=== PATIENT | female | born 1945 | race Caucasian/White ===

== ENCOUNTER 2019-04-15 10:25 | Inpatient (IN) | payer MEDICARE, MEDICAID ==
[~2019-04-15] VITALS: Ht 320 cm; Wt 47.6 kg
[~2019-04-15 10:25] MED LIST: BENA40TA9 PO; CALC667T6 PO; FAMO40TA70 PO; FLUO1TAB26; FOLI-43 PO; FOLI1POW MC; OMEP10SU2 PO; PRAV40TA58 PO
[2019-04-15 11:05] LABS: BASOPHILS % 0.3 % (0.0-2.0); EOSINOPHILS % 5.1 % (0.0-5.0); HEMATOCRIT. 35.9 % (36.0-48.0); HEMOGLOBIN. 11.8 g/dL (12.0-16.0); LYMPHOCYTES % 20.5 % (20.0-50.0); MEAN CORPUSCULAR HEMOGLOBIN 30.8 pg (28.0-32.0); MEAN CORPUSCULAR VOLUME 93.6 fL (81.0-99.0); MEAN PLATELET VOLUME 9.4 fl (7.4-10.4); MONOCYTES % 11.1 % (2.0-8.0); PLATELET 110 x1000/uL (130-400); RED BLOOD CELL COUNT 3.84 mill/uL (4.2-5.4); RED CELL DISTRIBUTION WIDTH 14.5 % (11.6-14.6)
[2019-04-15 11:11] LABS: CHLORIDE 96 mEq/L (98-107)
[2019-04-15 11:34] LABS: PROTHROMBIN TIME 10.5 sec (9.6-11.0)
[2019-04-15] MEDS ORDERED: FUROSEMIDE 40MG/4ML VIAL IVP ONE (13:30)
[2019-04-15] MEDS ORDERED: ONDANSETRON HCL 4MG/2ML INJ IV PRN (14:15)
[2019-04-15] MEDS ORDERED: ACETAMINOPHEN 325MG TABLET PO PRN (14:15)
[2019-04-15] MEDS ORDERED: CLONIDINE 0.1MG TABLET PO PRN (14:15)
[2019-04-15] MEDS ORDERED: MAGNESIUM/ALUMINUM HYDROXIDE/SIMETHICONE 30ML UDC PO PRN (14:15)
[2019-04-15] MEDS ORDERED: DIPHENHYDRAMINE 50MG/ML VIAL IV PRN (14:15)
[2019-04-15] MEDS ORDERED: IPRATROPIUM/ALBUTEROL 0.5-3(2.5)MG/3ML NEB INH PRN (14:15)
[2019-04-15 15:40] VITALS: BP 166/67
[2019-04-15 16:00] VITALS: BP 135/53
[2019-04-15] MEDS ORDERED: PNEUMOCOCCAL 23-VAL P-SAC VAC 0.5 ML IM ONE (16:15)
[2019-04-15] MEDS ORDERED: AMLO5TAB88 PO (17:44)
[2019-04-15] MEDS ORDERED: LOSA50TA41 PO (17:53)
[2019-04-15] MEDS ORDERED: MULT-1146 MT (17:53)
[2019-04-15 20:00] VITALS: BP 161/81
[2019-04-15] MEDS: SODIUM CHLORIDE 0.9% INJ 3ML FLUSH IVF SCH (22:05)
[2019-04-16] VITALS: BP 159/69
[2019-04-16 04:00] VITALS: BP 170/60
[2019-04-16 04:15] VITALS: BP 139/59
[2019-04-16] MEDS: SODIUM CHLORIDE 0.9% INJ 3ML FLUSH IVF SCH ×3 (05:12→21:40)
[2019-04-16 06:30] LABS: BASOPHILS % 0.3 % (0.0-2.0); EOSINOPHILS % 4.4 % (0.0-5.0); HEMATOCRIT. 33.1 % (36.0-48.0); LYMPHOCYTES % 22.7 % (20.0-50.0); MEAN CORPUSCULAR HEMOGLOBIN 30.9 pg (28.0-32.0); MEAN CORPUSCULAR VOLUME 93.2 fL (81.0-99.0); MEAN PLATELET VOLUME 9.5 fl (7.4-10.4); MONOCYTES % 9.7 % (2.0-8.0); NEUTROPHILS % 62.9 % (40.0-76.0); PLATELET 103 x1000/uL (130-400); RED BLOOD CELL COUNT 3.55 mill/uL (4.2-5.4); RED CELL DISTRIBUTION WIDTH 14.2 % (11.6-14.6)
[2019-04-16 07:42] LABS: PHOSPHORUS 2.7 mg/dL (2.5-4.9)
[2019-04-16 08:00] VITALS: BP_SYST 102; BP_SYST 158; BP_DIAS 53; BP_DIAS 73
[2019-04-16 20:00] VITALS: BP 113/61
[2019-04-17] VITALS: BP 143/56
[2019-04-17] MEDS: SODIUM CHLORIDE 0.9% INJ 3ML FLUSH IVF SCH (05:24)
[2019-04-17 06:47] LABS: BASOPHILS % 0.4 % (0.0-2.0); EOSINOPHILS % 5.1 % (0.0-5.0); HEMATOCRIT. 33.1 % (36.0-48.0); HEMOGLOBIN. 11.1 g/dL (12.0-16.0); LYMPHOCYTES % 19.4 % (20.0-50.0); MEAN CORPUSCULAR HEMOGLOBIN 31.2 pg (28.0-32.0); MEAN CORPUSCULAR VOLUME 92.9 fL (81.0-99.0); MEAN PLATELET VOLUME 9.4 fl (7.4-10.4); MONOCYTES % 9.3 % (2.0-8.0); NEUTROPHILS % 65.8 % (40.0-76.0); PLATELET 94 x1000/uL (130-400); RED BLOOD CELL COUNT 3.56 mill/uL (4.2-5.4); RED CELL DISTRIBUTION WIDTH 14.4 % (11.6-14.6)
[2019-04-17 08:00] VITALS: BP 136/60
[2019-04-17 08:19] LABS: PHOSPHORUS 2.9 mg/dL (2.5-4.9)
[2019-04-17 12:27] VITALS: BP 124/50
[2019-04-17 12:28] VITALS: BP 124/50
== END 2019-04-17 14:07 | disposition home or self-care (01) | DRG 470 ==
LOC: ER 10:25 → 8WST 13:21 → ENRESERV 13:34
PROVIDERS: ADMIT Internal Medicine; ATTEND Internal Medicine
PROC: 5A1D70Z Performance of Urinary Filtration, Intermittent, Less than 6 Hours Per Day (ICD-10-PCS; principal; 2019-04-16)
DX: I13.11 Hypertensive heart and chronic kidney disease without heart failure, with stage 5 chronic kidney disease, or end stage renal disease (principal); J96.90 Respiratory failure, unspecified, unspecified whether with hypoxia or hypercapnia; N18.6 End stage renal disease; D69.6 Thrombocytopenia, unspecified; I48.0 Paroxysmal atrial fibrillation; D64.9 Anemia, unspecified; J81.1 Chronic pulmonary edema; R07.89 Other chest pain; E78.00 Pure hypercholesterolemia, unspecified; E78.5 Hyperlipidemia, unspecified; Z82.49 Family history of ischemic heart disease and other diseases of the circulatory system; Z99.2 Dependence on renal dialysis; Z88.0 Allergy status to penicillin; Z79.899 Other long term (current) drug therapy
CPT/HCPCS: 36415; 71045; 80048; 83605; 83735; 84100; 84145; 84484; 90732; 93005; 96374; 99285; J1940

== ENCOUNTER 2024-06-20 22:03 | Inpatient (IN) | payer MEDICARE, MEDICAID ==
[~2024-06-20] VITALS: Ht 152.4 cm; Wt 40.9 kg
[~2024-06-20 22:03] MED LIST changes: +AMLO5TAB88 PO; -BENA40TA9 PO; -FLUO1TAB26; -FOLI1POW MC; +LOSA50TA41 PO; +MULT-1146 MT; -OMEP10SU2 PO
[2024-06-20] MEDS ORDERED: ONDANSETRON HCL 4MG/2ML INJ IV STA (23:27)
[2024-06-20] MEDS ORDERED: MORPHINE SULFATE 4 MG/ML INJ (FOR IV/IM USE) IV STA (23:27)
[2024-06-20] MEDS ORDERED: LIDOCAINE HCL/EPINEPHRINE 1%-EPI 1:100,000 20 ML VIAL INFIL ONE (23:45)
[2024-06-20] MEDS ORDERED: BACITRACIN ZINC OINT UDPKT TOP ONE (23:45)
[2024-06-20] MEDS ORDERED: TETANUS, DIPHTHERIA, PERTUSSIS VAC/PF 0.5ML (>10YR OLD) IM ONE (23:45)
[2024-06-21] VITALS (12 sets, daily range): BP systolic 101–142; BP diastolic 51–73; PULSE 96–117; RESP 18–20; TEMP 36.3918–37.05852; O2SAT 95–100
[2024-06-21 00:16] LABS: BASOPHILS % 0.4 % (0.0-2.0); DIFFERENTIAL COMMENT 0; HEMATOCRIT. 29.2 % (36.0-48.0); HEMOGLOBIN. 9.3 g/dL (12.0-16.0); LYMPHOCYTES % 16.2 % (20.0-50.0); MEAN CORPUSCULAR HEMOGLOBIN 32.1 pg (28.0-32.0); MEAN CORPUSCULAR HGB CONC 31.8 g/dL (31.0-37.0); MEAN CORPUSCULAR VOLUME 100.8 fL (81.0-99.0); MEAN PLATELET VOLUME 9.4 fl (7.4-10.4); MONOCYTES % 9.4 % (2.0-8.0); PLATELET 160 x1000/uL (130-400); RED CELL DISTRIBUTION WIDTH 15.8 % (11.6-14.6); WHITE BLOOD COUNT 5.5 x1000/uL (4.5-11.0)
[2024-06-21 00:19] LABS: CHLORIDE 101 mEq/L (98-107); POTASSIUM 3.7 mEq/L (3.5-5.1); SODIUM 140 mEq/L (136-145)
[2024-06-21 00:20] LABS: CARBON DIOXIDE 28 mEq/L (21-32)
[2024-06-21 00:21] LABS: CALCIUM 9.6 mg/dL (8.7-10.4)
[2024-06-21 00:26] LABS: GLUCOSE 152 mg/dL (70-105); UREA NITROGEN BLOOD 35 mg/dL (9-23)
[2024-06-21 00:27] LABS: TROPONIN I HIGH SENSITIVITY 22 ng/L (3.0-34)
[2024-06-21 00:29] LABS: CREATININE 8.2 mg/dL (0.6-1.0)
[2024-06-21] MEDS: CEFTRIAXONE 1GM/50ML 50 ML IV ONE (01:40)
[2024-06-21] MEDS: MORPHINE SULFATE 4 MG/ML INJ (FOR IV/IM USE) IV NR (01:40)
[2024-06-21] MEDS: ONDANSETRON HCL 4MG/2ML INJ IV NR (01:40)
[2024-06-21] MEDS ORDERED: TETANUS, DIPHTHERIA, PERTUSSIS VAC/PF 0.5ML (>10YR OLD) IM ONE (02:00)
[2024-06-21] MEDS ORDERED: LIDOCAINE HCL/EPINEPHRINE 1%-EPI 1:100,000 20 ML VIAL INFIL NR (02:00)
[2024-06-21 02:14] LABS: PROTHROMBIN TIME 10.9 sec (9.6-11.0)
[2024-06-21 02:54] LABS: TROPONIN I HIGH SENSITIVITY 21 ng/L (3.0-34)
[2024-06-21] MEDS ORDERED: HYDRALAZINE 20MG/ML VIAL IV PRN (10:45)
[2024-06-21] MEDS: HYDRALAZINE 20MG/ML VIAL IV PRN (10:47)
[2024-06-21] MEDS ORDERED: DEXTROSE 50% WATER 50ML SYRINGE IV PRN (12:15)
[2024-06-21] MEDS ORDERED: ACETAMINOPHEN 325MG TABLET PO PRN ×2 (12:15)
[2024-06-21] MEDS ORDERED: IPRATROPIUM/ALBUTEROL 0.5-3(2.5)MG/3ML NEB HHN PRN (12:15)
[2024-06-21] MEDS ORDERED: DOCUSATE SODIUM 100MG CAPSULE PO PRN (12:15)
[2024-06-21] MEDS ORDERED: CLONIDINE 0.1MG TABLET PO PRN (12:15)
[2024-06-21] MEDS ORDERED: ONDANSETRON HCL 4MG/2ML INJ IV PRN (12:15)
[2024-06-21] MEDS: INSULIN LISPRO 100 UNITS/ML SUBCUT SCH (12:40)
[2024-06-21] MEDS: HYDRALAZINE HCL 50MG TABLET PO SCH (14:00)
[2024-06-21 17:06] LABS: CARBON DIOXIDE 29 mEq/L (21-32); CHLORIDE 100 mEq/L (98-107); POTASSIUM 4.9 mEq/L (3.5-5.1); SODIUM 142 mEq/L (136-145)
[2024-06-21] MEDS: BLOOD SUGAR DIAGNOSTIC STRIP TEST SCH (17:09)
[2024-06-21 17:11] LABS: GLUCOSE 160 mg/dL (70-105)
[2024-06-21 17:12] LABS: LDL CHOLESTEROL 81 mg/dL (5-100); TRIGLYCERIDE 112 mg/dL (0-150); UREA NITROGEN BLOOD 46 mg/dL (9-23)
[2024-06-21 17:13] LABS: ALANINE AMINOTRANSFERASE < 7 IU/L (10-49); ALBUMIN 3.9 g/dL (3.2-4.8); ASPARTATE AMINOTRANSFERASE 22 IU/L (<34); BILIRUBIN DIRECT 0.1 mg/dL (<=3.0); CHOLESTEROL 151 mg/dL (<200); HDL CHOLESTEROL 49 mg/dL (>65); PROTEIN TOTAL 6.7 g/dL (6.0-8.3)
[2024-06-21 17:14] LABS: BILIRUBIN TOTAL 0.2 mg/dL (0.1-1.0); CREATININE 9.9 mg/dL (0.6-1.0); PHOSPHORUS 5.5 mg/dL (2.5-4.9)
[2024-06-21] MEDS ORDERED: NALOXONE HCL 0.4MG/ML VIAL IV PRN (17:15)
[2024-06-21 17:16] LABS: CREATINE KINASE MB FRACTION 1.3 ng/mL (0.5-3.6)
[2024-06-21 17:18] LABS: DIFFERENTIAL COMMENT 1; HEMATOCRIT. 23.7 % (36.0-48.0); HEMOGLOBIN. 7.6 g/dL (12.0-16.0); MEAN CORPUSCULAR HEMOGLOBIN 32.2 pg (28.0-32.0); MEAN CORPUSCULAR HGB CONC 32.2 g/dL (31.0-37.0); MEAN CORPUSCULAR VOLUME 99.8 fL (81.0-99.0); MEAN PLATELET VOLUME 9.9 fl (7.4-10.4); PLATELET 135 x1000/uL (130-400); RED BLOOD CELL COUNT 2.37 mill/uL (4.2-5.4); RED CELL DISTRIBUTION WIDTH 15.6 % (11.6-14.6); T4 FREE 0.79 ng/dL (0.89-1.76); THYROID STIMULATING HORMONE 2.55 uIU/mL (0.55-4.78); WHITE BLOOD COUNT 6.9 x1000/uL (4.5-11.0)
[2024-06-21 17:21] LABS: D-DIMER 21.91 mg/L FEU (<0.50); PROTHROMBIN TIME 11.4 sec (9.6-11.0)
[2024-06-21 17:31] LABS: HEPATITIS B SURFACE ANTIGEN NEGATIVE (Negative)
[2024-06-21 17:51] LABS: HEPATITIS A AB IGM NEGATIVE (Negative)
[2024-06-21 17:52] LABS: HEPATITIS B CORE AB IGM NEGATIVE (Negative); HEPATITIS C AB NON REACTIVE (Neg) (Negative)
[2024-06-21] MEDS: HYDROCODONE/ACETAMINOPHEN 5/325MG TABLET PO PRN (20:37)
[2024-06-21] MEDS: EPOETIN ALFA-EPBX 4,000 UNIT/ML VIAL SUBCUT SCH (21:41)
[2024-06-21 23:37] LABS: ANISOCYTOSIS 1+; PLATELET ESTIMATE NORMAL
[2024-06-22] VITALS: BP 130/85; PULSE 65; RESP 19; TEMP 36.55848; O2SAT 99
[2024-06-22 01:02] LABS: CREATINE KINASE MB FRACTION 1.3 ng/mL (0.5-3.6)
[2024-06-22 04:00] VITALS: BP 142/70; PULSE 76; RESP 19; TEMP 36.55848; O2SAT 99
[2024-06-22 08:00] VITALS: BP 157/72; PULSE 100; RESP 18; TEMP 36.3918; O2SAT 100
[2024-06-22] MEDS: PANTOPRAZOLE SODIUM 40 MG/VIAL IV SCH (09:00)
[2024-06-22 12:00] VITALS: BP 112/72; PULSE 87; RESP 18; TEMP 36.50292; O2SAT 95
[2024-06-22 15:28] LABS: BASOPHILS % 0.3 % (0.0-2.0); DIFFERENTIAL COMMENT 0; EOSINOPHILS % 0.6 % (0.0-5.0); HEMATOCRIT. 23.8 % (36.0-48.0); HEMOGLOBIN. 7.6 g/dL (12.0-16.0); LYMPHOCYTES % 9.8 % (20.0-50.0); MEAN CORPUSCULAR HEMOGLOBIN 32.6 pg (28.0-32.0); MEAN CORPUSCULAR HGB CONC 31.7 g/dL (31.0-37.0); MEAN CORPUSCULAR VOLUME 102.7 fL (81.0-99.0); MEAN PLATELET VOLUME 10.1 fl (7.4-10.4); MONOCYTES % 9.4 % (2.0-8.0); NEUTROPHILS % 79.9 % (40.0-76.0); PLATELET 121 x1000/uL (130-400); RED BLOOD CELL COUNT 2.32 mill/uL (4.2-5.4); RED CELL DISTRIBUTION WIDTH 16.7 % (11.6-14.6)
[2024-06-22 15:30] LABS: CHLORIDE 101 mEq/L (98-107); POTASSIUM 4.7 mEq/L (3.5-5.1); SODIUM 137 mEq/L (136-145)
[2024-06-22 15:32] LABS: CALCIUM 8.8 mg/dL (8.7-10.4); CARBON DIOXIDE 27 mEq/L (21-32)
[2024-06-22 15:37] LABS: GLUCOSE 147 mg/dL (70-105); UREA NITROGEN BLOOD 34 mg/dL (9-23)
[2024-06-22 15:39] LABS: ALANINE AMINOTRANSFERASE < 7 IU/L (10-49); ASPARTATE AMINOTRANSFERASE 24 IU/L (<34); BILIRUBIN DIRECT 0.1 mg/dL (<=3.0); BILIRUBIN TOTAL 0.3 mg/dL (0.1-1.0); PHOSPHORUS 5.6 mg/dL (2.5-4.9)
[2024-06-22 15:45] LABS: CREATININE 7.5 mg/dL (0.6-1.0)
[2024-06-22 16:00] VITALS: BP 122/56; PULSE 83; RESP 18; TEMP 36.55848; O2SAT 94
[2024-06-22 20:00] VITALS: BP 140/59; PULSE 95; RESP 17; TEMP 36.6696; O2SAT 97
[2024-06-22] MEDS: MORPHINE SULFATE 2 MG/ML INJ (NOT FOR IM USE) IV SCH (20:13)
[2024-06-22] MEDS: LORAZEPAM 2MG/ML INJ IV PRN (21:07)
[2024-06-23] VITALS: BP 155/66; PULSE 97; RESP 17; TEMP 36.22512; O2SAT 95
[2024-06-23 04:00] VITALS: BP 143/83; PULSE 92; RESP 17; TEMP 36.44736; O2SAT 100
[2024-06-23 08:00] VITALS: BP 154/66; PULSE 93; RESP 18; TEMP 36.114; O2SAT 8
[2024-06-23 12:00] VITALS: BP 169/70; PULSE 94; RESP 18; TEMP 36.3918; O2SAT 97
[2024-06-23 15:38] LABS: BASOPHILS % 0.4 % (0.0-2.0); DIFFERENTIAL COMMENT 0; EOSINOPHILS % 1.6 % (0.0-5.0); HEMATOCRIT. 27.1 % (36.0-48.0); HEMOGLOBIN. 8.5 g/dL (12.0-16.0); LYMPHOCYTES % 10.8 % (20.0-50.0); MEAN CORPUSCULAR HEMOGLOBIN 32.1 pg (28.0-32.0); MEAN CORPUSCULAR HGB CONC 31.5 g/dL (31.0-37.0); MEAN CORPUSCULAR VOLUME 102.1 fL (81.0-99.0); MONOCYTES % 6.7 % (2.0-8.0); NEUTROPHILS % 80.5 % (40.0-76.0); PLATELET 123 x1000/uL (130-400); RED BLOOD CELL COUNT 2.65 mill/uL (4.2-5.4); RED CELL DISTRIBUTION WIDTH 16.6 % (11.6-14.6); WHITE BLOOD COUNT 6.2 x1000/uL (4.5-11.0)
[2024-06-23 15:48] LABS: CHLORIDE 99 mEq/L (98-107); POTASSIUM 4.5 mEq/L (3.5-5.1); SODIUM 137 mEq/L (136-145)
[2024-06-23 15:49] LABS: CALCIUM 8.7 mg/dL (8.7-10.4); CARBON DIOXIDE 27 mEq/L (21-32)
[2024-06-23 15:54] LABS: GLUCOSE 126 mg/dL (70-105); UREA NITROGEN BLOOD 45 mg/dL (9-23)
[2024-06-23 15:55] LABS: CREATININE 8.8 mg/dL (0.6-1.0)
[2024-06-23 15:56] LABS: ALANINE AMINOTRANSFERASE < 7 IU/L (10-49); ALBUMIN 3.9 g/dL (3.2-4.8); ASPARTATE AMINOTRANSFERASE 22 IU/L (<34); BILIRUBIN DIRECT 0.1 mg/dL (<=3.0); BILIRUBIN TOTAL 0.3 mg/dL (0.1-1.0); PHOSPHORUS 5.8 mg/dL (2.5-4.9); PROTEIN TOTAL 7.2 g/dL (6.0-8.3)
[2024-06-23 16:00] VITALS: BP 130/57; PULSE 99; RESP 18; TEMP 36.44736; O2SAT 98
[2024-06-23 20:00] VITALS: BP 131/62; PULSE 100; RESP 20; TEMP 36.61404; O2SAT 95
[2024-06-24] VITALS (13 sets, daily range): BP systolic 110–152; BP diastolic 51–80; PULSE 70–111; RESP 16–20; TEMP 36.114–37.05852; O2SAT 94–100
[2024-06-24 08:45] LABS: HEMATOCRIT. 24.2 % (36.0-48.0); HEMOGLOBIN. 7.7 g/dL (12.0-16.0); MEAN CORPUSCULAR HEMOGLOBIN 32.2 pg (28.0-32.0); MEAN CORPUSCULAR VOLUME 100.6 fL (81.0-99.0); MEAN PLATELET VOLUME 9.9 fl (7.4-10.4); PLATELET 121 x1000/uL (130-400); RED CELL DISTRIBUTION WIDTH 15.7 % (11.6-14.6); WHITE BLOOD COUNT 5.9 x1000/uL (4.5-11.0)
[2024-06-24 08:53] LABS: CARBON DIOXIDE 27 mEq/L (21-32); CHLORIDE 101 mEq/L (98-107); POTASSIUM 4.6 mEq/L (3.5-5.1); SODIUM 137 mEq/L (136-145)
[2024-06-24 08:54] LABS: CALCIUM 8.5 mg/dL (8.7-10.4)
[2024-06-24 08:57] LABS: DIFFERENTIAL COMMENT 1
[2024-06-24 08:58] LABS: GLUCOSE 114 mg/dL (70-105)
[2024-06-24 08:59] LABS: UREA NITROGEN BLOOD 55 mg/dL (9-23)
[2024-06-24 09:00] LABS: ALANINE AMINOTRANSFERASE < 7 IU/L (10-49); ASPARTATE AMINOTRANSFERASE 18 IU/L (<34)
[2024-06-24 09:01] LABS: ALBUMIN 3.7 g/dL (3.2-4.8); BILIRUBIN DIRECT 0.1 mg/dL (<=3.0); BILIRUBIN TOTAL 0.3 mg/dL (0.1-1.0); PHOSPHORUS 5.7 mg/dL (2.5-4.9); PROTEIN TOTAL 6.7 g/dL (6.0-8.3)
[2024-06-24 09:15] LABS: CREATININE 9.8 mg/dL (0.6-1.0)
[2024-06-24] MEDS: DOXYCYCLINE HYCLATE 100MG CAPSULE PO SCH (09:43)
[2024-06-24 13:05] LABS: NUCLEATED RED BLOOD CELLS 3 /100 WBC
[2024-06-24 13:06] LABS: ANISOCYTOSIS 1+; PLATELET ESTIMATE SLIGHTLY DECREASED
[2024-06-24 17:07] LABS: LACTIC ACID 2.5 mmol/L (0.4-2.0)
[2024-06-25] VITALS: BP 151/58; PULSE 75; RESP 18; TEMP 36.72516; O2SAT 100
[2024-06-25 04:00] VITALS: BP_SYST 124; BP_SYST 132; BP_DIAS 64; BP_DIAS 72; PULSE 78; PULSE 84; RESP 16; TEMP 36.114; TEMP 36.33624; O2SAT 95; O2SAT 98
[2024-06-25 08:00] VITALS: BP 100/54; PULSE 105; RESP 18; TEMP 35.61396; O2SAT 97
[2024-06-25 12:00] VITALS: BP 130/60; PULSE 103; RESP 18; TEMP 36.114; O2SAT 96
[2024-06-25 16:00] VITALS: BP 122/77; PULSE 102; RESP 20; TEMP 36.22512; O2SAT 98
[2024-06-25] MEDS: VANCOMYCIN 1GM/200ML PMX (BAXTER) IV NR (16:55)
[2024-06-25 20:00] VITALS: BP 146/67; PULSE 100; RESP 20; TEMP 37.00296; O2SAT 98
[2024-06-26] VITALS: BP 139/80; PULSE 80; RESP 20; TEMP 36.89184; O2SAT 98
[2024-06-26 04:00] VITALS: BP 113/57; PULSE 97; RESP 18; TEMP 37.00296; O2SAT 98
[2024-06-26 08:00] VITALS: BP 107/55; PULSE 88; RESP 18; TEMP 36.50292; O2SAT 100
[2024-06-26 10:27] LABS: HEMATOCRIT. 28.5 % (36.0-48.0); HEMOGLOBIN. 8.7 g/dL (12.0-16.0); MEAN CORPUSCULAR HEMOGLOBIN 32.2 pg (28.0-32.0); MEAN CORPUSCULAR HGB CONC 30.7 g/dL (31.0-37.0); MEAN CORPUSCULAR VOLUME 104.8 fL (81.0-99.0); MEAN PLATELET VOLUME 10.8 fl (7.4-10.4); PLATELET 109 x1000/uL (130-400); RED BLOOD CELL COUNT 2.72 mill/uL (4.2-5.4); RED CELL DISTRIBUTION WIDTH 16.7 % (11.6-14.6); WHITE BLOOD COUNT 9.9 x1000/uL (4.5-11.0)
[2024-06-26 10:28] LABS: DIFFERENTIAL COMMENT 1
[2024-06-26 10:41] LABS: POTASSIUM 4.8 mEq/L (3.5-5.1)
[2024-06-26 10:42] LABS: CALCIUM 8.3 mg/dL (8.7-10.4)
[2024-06-26 10:58] LABS: CREATININE 11.4 mg/dL (0.6-1.0)
[2024-06-26 12:00] VITALS: BP 107/50; PULSE 87; RESP 18; TEMP 36.28068; O2SAT 97
[2024-06-26 16:00] VITALS: BP 95/48; PULSE 92; RESP 18; TEMP 36.33624; O2SAT 99
[2024-06-26 16:40] VITALS: BP 95/48; PULSE 92; TEMP 97.4; O2SAT 99
[2024-06-26 21:45] LABS: ANISOCYTOSIS 1+; PLATELET ESTIMATE DECREASED
== END 2024-06-26 19:30 | DRG 384 ==
LOC: ER 22:03 → 8WST 06-21 01:52 → EDBEDREQ 06-21 02:31 → EDBEDREQTM 06-21 02:31
PROVIDERS: ADMIT Internal Medicine; ATTEND Internal Medicine
PROC: 0HQLXZZ Repair Left Lower Leg Skin, External Approach (ICD-10-PCS; principal; 2024-06-21)
PROC: 5A1D70Z Performance of Urinary Filtration, Intermittent, Less than 6 Hours Per Day (ICD-10-PCS; 2024-06-21)
PROC: 5A1D70Z Performance of Urinary Filtration, Intermittent, Less than 6 Hours Per Day (ICD-10-PCS; 2024-06-24)
DX: S80.02XA Contusion of left knee, initial encounter (principal); I21.4 Non-ST elevation (NSTEMI) myocardial infarction; I13.2 Hypertensive heart and chronic kidney disease with heart failure and with stage 5 chronic kidney disease, or end stage renal disease; E87.20 Acidosis, unspecified; D69.6 Thrombocytopenia, unspecified; I27.20 Pulmonary hypertension, unspecified; N18.6 End stage renal disease; S80.01XA Contusion of right knee, initial encounter; M25.462 Effusion, left knee; S81.012A Laceration without foreign body, left knee, initial encounter; M25.461 Effusion, right knee; I50.22 Chronic systolic (congestive) heart failure; D53.9 Nutritional anemia, unspecified; R73.9 Hyperglycemia, unspecified; E78.00 Pure hypercholesterolemia, unspecified; F03.93 Unspecified dementia, unspecified severity, with mood disturbance; F20.9 Schizophrenia, unspecified; F32.9 Major depressive disorder, single episode, unspecified; I48.91 Unspecified atrial fibrillation; I87.1 Compression of vein; M17.0 Bilateral primary osteoarthritis of knee; M71.20 Synovial cyst of popliteal space [Baker], unspecified knee; W01.0XXA Fall on same level from slipping, tripping and stumbling without subsequent striking against object, initial encounter; Z99.2 Dependence on renal dialysis; Y92.009 Unspecified place in unspecified non-institutional (private) residence as the place of occurrence of the external cause; Z82.49 Family history of ischemic heart disease and other diseases of the circulatory system; Z88.0 Allergy status to penicillin; Y93.89 Activity, other specified; Y99.8 Other external cause status
CPT/HCPCS: 36415; 71045; 73560; 73590; 73700; 76881; 78580; 80048; 80061; 80076; 82550; 82553; 82962; 83036; 83605; 83735; 83880; 84100; 84145; 84439; 84443; 84480; 84484; 85025; 85379; 85651; 86705; 86709; 86850; 86900; 87070; 87340; 90935; 93005; 93306; 93970; 97110; 97162; 97166; 99291; C1893; J0360; J0696; J0885; J1815; J2060; J2270; J2405; J2470; J3370